=== PATIENT | female | born 1975 ===

== ENCOUNTER 2018-03-29 21:43 | Emergency (ER) | payer BC, OTHER ==
[2018-03-29 21:59] VITALS: BP 135/80; PULSE 73; RESP 18; TEMP 98.1; BMI 32.3
--- NOTE | 2018-03-29 23:34 | ED PDOC ---
Arrival/HPI - General Chief Complaint: Lower Extremity Problem/Injury Time Seen by Provider: 03/29/18 22:29 Historian: Patient - History of Present Illness Narrative History of Present Illness (Text): 03/29/18 23:24 42-year-old female presents today with a to three-day history of right knee pain. Patient denies any trauma or injury. Patient denies fevers or chills. No chest pain or shortness of breath. Patient states the pain is along the anterior medial aspect of the knee. Patient states the pain is worse with Ambulation and worse with flexion of the knee. Patient denies numbness weakness or tingling in the extremity. She denies posterior knee pain. She denies calf pain. Patient states she took Motrin for pain without improvement. Patient states she has a history of meniscal injury in the past. No chest pain or shortness of breath. She denies any other complaints. Symptom Onset: Gradual Symptom Course: Worsening Quality: Aching, Tightness Past Medical History - Provider Review Nursing Documentation Reviewed: Yes - Travel History Have you recently traveled outside [place] w/in the past 3 mons?: No - Infectious Disease Hx of Infectious Diseases: None - Psychiatric Hx Substance Use: No - Surgical History Hx Section: Yes (x2) Hx Orthopedic Surgery: Yes (left shoulder) - Anesthesia Hx Anesthesia: Yes Hx Anesthesia Reactions: No Hx Malignant Hyperthermia: No Family/Social History - Physician Review Nursing Documentation Reviewed: Yes Family/Social History: Unknown Family HX Smoking Status: Light Smoker < 10 Cigarettes Daily Hx Alcohol Use: Yes Frequency of alcohol use: Few days per week Hx Substance Use: No Allergies/Home Meds Allergies/Adverse Reactions: Allergies No Known Allergies Allergy (Verified 03/29/18 22:06) Review of Systems - Review of Systems Constitutional: absent: Fatigue, Fevers Respiratory: absent: SOB, Cough Cardiovascular: absent: Chest Pain, Palpitations Gastrointestinal: absent: Abdominal Pain, Nausea, Vomiting Musculoskeletal: Arthralgias Skin: absent: Rash, Pruritis Neurological: absent: Headache, Dizziness Psychiatric: absent: Anxiety, Depression Physical Exam Vital Signs Reviewed: Yes Vital Signs Temp Pulse Resp BP Pulse Ox 03/29/18 21:59 98.1 F 73 18 135/80 100 Temperature: Afebrile Blood Pressure: Normal Pulse: Regular Respiratory Rate: Normal Appearance: Positive for: Well-Appearing, Non-Toxic, Comfortable Pain Distress: None Mental Status: Positive for: Alert and Oriented X 3 - Systems Exam Head: Present: Atraumatic Mouth: Present: Moist Mucous Membranes Neck: Present: Normal Range of Motion Respiratory/Chest: Present: Clear to Auscultation, Good Air Exchange. No: Respiratory Distress, Accessory Muscle Use Cardiovascular: Present: Regular Rate and Rhythm, Normal S1, S2. No: Murmurs Lower Extremity: Present: NORMAL PULSES, Tenderness (right knee: + ttp over anterior medial aspect of the knee. limited flexion and extension of knee with pain; sensation and distal pulses intact; no posterior calf tenderness, no posterior knee tenderness. no erythema. no edema, no ecchymosis; sensation and distal pulses intact. cap refill <2. ), Neurovascularly Intact, Capillary Refill < 2 s. No: CALF TENDERNESS, Normal ROM, Swelling, Erythema, Deformity Neurological: Present: GCS=15, Speech Normal Skin: Present: Warm, Dry, Normal Color Psychiatric: Present: Alert, Oriented x 3 Medical Decision Making ED Course and Treatment: 03/29/18 23:52 Patient nontoxic well-appearing in no distress with stable vital signs X-rays of the right knee; no fracture toradol IM Patient placed in Knee immobilizer. Crutches given for ambulation I discussed all results with patient advised to followup with the orthopedist for the next 2 days. Return if symptoms worsen persist or new symptoms develop i advised the patient that although the xrays show no fracture; there is still a possibility for ligamentous or tendon injury the patient must see the orthopedist for further evaluation. Patient verbalizes understanding of discharge instructions and need for immediate followup. all aspects of this case were discussed the attending of record. Impression: knee pain Motrin every 6 hours as needed for pain Rest, ice, compression, elevation Use crutches for ambulation Followup with the orthopedist within the next 2 days Followup with primary care physician within the next 2 days Return if symptoms worsen persist or if new symptoms develop Reassessment Condition: Re-examined, Improved - RAD Interpretation Radiology Orders: 03/29/18 KNEE W PATELLA RIGHT 3 VIEW [RAD] Stat - Medication Orders Current Medication Orders: Discontinued Medications Ketorolac Tromethamine (Toradol) 60 mg IM STAT STA Stop: 03/29/18 22:30 Last Admin: 03/29/18 22:47 Dose: 60 mg MAR Pain Assessment Document 03/29/18 22:47 SS (Rec: 03/29/18 22:48 SS [id number]) Pain Reassessment Is this a pain reassessment? No Presence of Pain Presence of Pain Yes Pain Scale Used Pain Scale Used Numeric Location Left, Right or Bilateral Right Pain Location Body Site Knee IM Administration Charges Document 03/29/18 22:47 SS (Rec: 03/29/18 22:48 SS [id number]) Injection Site MAR Injection Site Right Arm Charges for Administration # of IM Administrations 1 Tramadol HCl (Ultram) 50 mg PO STAT STA Stop: 03/29/18 22:30 Last Admin: 03/29/18 22:48 Dose: 50 mg MAR Pain Assessment Document 03/29/18 22:48 SS (Rec: 03/29/18 22:49 SS [id number]) Pain Reassessment Is this a pain reassessment? No Presence of Pain Presence of Pain Yes Pain Scale Used Pain Scale Used Numeric Location Left, Right or Bilateral Right Pain Location Body Site Knee Disposition/Present on Arrival - Present on Arrival Any Indicators Present on Arrival: No History of DVT/PE: No History of Uncontrolled Diabetes: No Urinary Catheter: No History of Decub. Ulcer: No History Surgical Site Infection Following: None - Disposition Have Diagnosis and Disposition been Completed?: Yes Diagnosis: Knee pain, Arthritis Disposition: HOME/ ROUTINE Disposition Time: 23:00 Patient Plan: Discharge Patient Problems: Current Active Problems Problem Status Onset Arthritis Acute Knee pain Acute Condition: GOOD Discharge Instructions (ExitCare): Knee Pain Additional Instructions: Motrin every 6 hours as needed for pain Rest, ice, compression, elevation Use crutches for ambulation Followup with the orthopedist within the next 2 days Followup with primary care physician within the next 2 days Return if symptoms worsen persist or if new symptoms develop Prescriptions: Ibuprofen [Motrin] 600 mg PO Q6H PRN #20 tab PRN Reason: pain/fever reduction Referrals: Matthew Gar DO [Staff Provider] - Follow up with primary Luly Martinez MD [Medical Doctor] - Follow up with primary [facility] [Outside] - Follow up with primary Forms: [employer] [employer] (Lebanese), WORK NOTE
[2018-03-30 03:26] VITALS: O2SAT 99
--- NOTE | 2018-03-30 09:33 | RAD ---
Date of service: 03/29/2018 PROCEDURE: Right Knee Radiographs. HISTORY: knee pain COMPARISON: None. FINDINGS: BONES: Normal. No fracture. JOINTS: Mild patellofemoral osteoarthritis. JOINT EFFUSION: None. OTHER FINDINGS: Mild patellofemoral osteoarthritis. IMPRESSION: Normal radiographs of the right knee.
== END 2018-03-30 00:44 | disposition home or self-care (01) ==
LOC: ED 21:43 → MERGE 21:43 → ED 03-30 00:44
DX: M17.11 Unilateral primary osteoarthritis, right knee (principal); M25.561 Pain in right knee
CPT/HCPCS: 73562; 96372; 99283; J1885